=== PATIENT | female | born 1975 | race Caucasian/White ===

== ENCOUNTER 2019-07-14 09:11 | Emergency (ER) | payer OTHER ==
[2019-07-14 09:24] VITALS: BP 105/60; PULSE 98; TEMP 101.4; BMI 22.3
[2019-07-14] MEDS ORDERED: IBUPROFEN 400 MG TABLET (FP) PO ONE ×2 (09:31→09:33)
--- NOTE | 2019-07-14 09:33 | PDOC ---
History of Present Illness - General Chief Complaint: Cold Symptoms Stated Complaint: FEVERS / HEADACHE Time Seen by Provider: 07/14/19 09:22 History Source: Patient - History of Present Illness Timing/Duration: reports: yesterday Past History - Past Medical History Allergies/Adverse Reactions: Allergies Allergy/AdvReac Type Severity Reaction Status Date / Time No Known Allergies Allergy Verified 04/03/16 14:14 Home Medications: Ambulatory Orders NK [No Known Home Medication] 07/14/19 COPD: No - Surgical History GI Surgery: No - Immunization History Immunization Up to Date: No - Psycho Social/Smoking Cessation Hx Smoking Status: No Smoking History: Never smoked Have you smoked in the past 12 months: No Number of Cigarettes Smoked Daily: 0 Information on smoking cessation initiated: No Hx Alcohol Use: No Drug/Substance Use Hx: No Substance Use Type: None Review of Systems - Review of Systems Constitutional: Yes: Fever, Malaise HEENTM: No: Throat Pain Respiratory: No: Cough *Physical Exam - Vital Signs Last Vital Signs Temp Pulse Resp BP Pulse Ox 101.4 F H 98 H 18 105/60 97 07/14/19 09:11 07/14/19 09:11 07/14/19 09:11 07/14/19 09:11 07/14/19 09:11 - Physical Exam General Appearance: Yes: Appropriately Dressed. No: Apparent Distress HEENT: positive: Normal ENT Inspection, Normal Voice, TMs Normal, Pharynx Normal. negative: Scleral Icterus (R), Scleral Icterus (L) Neck: positive: Supple. negative: Lymphadenopathy (R), Lymphadenopathy (L) Respiratory/Chest: positive: Lungs Clear, Normal Breath Sounds. negative: Respiratory Distress Cardiovascular: positive: Regular Rate, S1, S2 Gastrointestinal/Abdominal: positive: Soft Integumentary: positive: Dry, Warm Neurologic: positive: Fully Oriented, Alert, Normal Mood/Affect Medical Decision Making - Medical Decision Making 07/14/19 09:32 43-year-old female no medical problems here with body aches with fever chills since last night. No cough shortness of breath nausea vomiting or diarrhea. No recent travel see exam Viral syndrome, r/o flu -dose of motrin given for fever in ED 07/14/19 10:48 Flu negative. DC with supportive treatment Discharge - Discharge Information Problems reviewed: Yes Clinical Impression/Diagnosis: Viral syndrome Condition: Good Disposition: HOME - Follow up/Referral - Patient Discharge Instructions Patient Printed Discharge Instructions: DI for Viral Syndrome Additional Instructions: Rest drink plenty of fluids and take Motrin or Tylenol for pain and/or fever - Post Discharge Activity
== END 2019-07-14 10:52 | disposition home or self-care (01) ==
LOC: JERFT 09:11
DX: B34.9 Viral infection, unspecified (principal)
CPT/HCPCS: 87804; 99281-25

== ENCOUNTER 2020-05-15 11:42 | Emergency (ER) | payer OTHER ==
[2020-05-15 11:49] VITALS: BP 134/79; PULSE 78; BMI 25.0
[2020-05-15 11:50] VITALS: TEMP 96.8
[2020-05-15] MEDS ORDERED: ACETAMINOPHEN 325 MG TABLET (FP) ONE ×2 (12:03→12:06)
[2020-05-15] MEDS ORDERED: ACETAMINOPHEN 325 MG TABLET (FP) PO ONE (12:03)
[2020-05-15 12:29] LABS: EPI CELLS 7 /uL (0-25.1); HCG,QUALITATIVE URINE Negative; HYALINE CASTS 3 /uL (0-3.1); PH,URINE 6.5 (5.0-8.0); URINE APPEARANCE TURBID; URINE BACTERIA >9,000 /uL (0-1359); URINE BILIRUBIN NEGATIVE (NEGATIVE); URINE COLOR YELLOW; URINE GLUCOSE (UA) NEGATIVE (NEGATIVE); URINE KETONE 1+ (NEGATIVE); URINE LEUK ESTERASE 3+ (NEGATIVE); URINE NITRITE POSITIVE (NEGATIVE); URINE PROTEIN 3+ (NEGATIVE); URINE RBC 814 /uL (0-23.9); URINE WBC 4523 /uL (0-25.8)
== END 2020-05-15 12:54 | disposition home or self-care (01) ==
LOC: JER 11:42 → JERFT 11:42
DX: N30.01 Acute cystitis with hematuria (principal)
CPT/HCPCS: 81003; 84703; 87086; 87186; 99284-25

== ENCOUNTER 2020-06-09 18:27 | Emergency (ER) | payer OTHER ==
[2020-06-09 18:34] VITALS: BP 127/70; PULSE 88; TEMP 98; BMI 25.4
== END 2020-06-09 19:42 | disposition home or self-care (01) ==
LOC: JERFT 18:27
DX: N30.00 Acute cystitis without hematuria (principal)
CPT/HCPCS: 99283-25

== ENCOUNTER 2021-08-20 16:00 | Emergency (ER) | payer OTHER ==
[2021-08-20 16:10] VITALS: BMI 28.3
[2021-08-20] MEDS ORDERED: SODIUM CHLORIDE 1,000 ML IV STA (17:50)
[2021-08-20] MEDS ORDERED: ACETAMINOPHEN 1000 MG/100 ML BAG IVPB ONE (17:50)
[2021-08-20] MEDS ORDERED: ONDANSETRON 4 MG/2 ML VIAL IVPUSH ONE (17:50)
[2021-08-20] MEDS ORDERED: ACETAMINOPHEN INJECTION 100 ML IVPB ONE (18:07)
[2021-08-20] MEDS ORDERED: ONDANSETRON 4 MG/2 ML VIAL ONE (18:08)
[2021-08-20 19:04] LABS: EPI CELLS 31 /uL (0-25.1); HYALINE CASTS 1 /uL (0-3.1); URINE APPEARANCE CLEAR; URINE BACTERIA 486 /uL (0-1359); URINE BILIRUBIN NEGATIVE (NEGATIVE); URINE COLOR YELLOW; URINE GLUCOSE (UA) NEGATIVE (NEGATIVE); URINE KETONE 2+ (NEGATIVE); URINE LEUK ESTERASE NEGATIVE (NEGATIVE); URINE NITRITE NEGATIVE (NEGATIVE); URINE PROTEIN TRACE (NEGATIVE); URINE RBC 291 /uL (0-23.9); URINE WBC 11 /uL (0-25.8)
[2021-08-20 19:05] LABS: HCG,QUALITATIVE URINE Negative
[2021-08-20 19:38] LABS: BASO % 0.2 % (0-2.0); EOS % 0.6 % (0-4.5); HEMATOCRIT 43.6 % (32.4-45.2); HEMOGLOBIN 15.1 GM/dL (10.7-15.3); LYMPH % 7.3 % (8-40); MCH 31.6 pg (25.7-33.7); MCHC 34.6 g/dl (32.0-36.0); MEAN CELL VOLUME 91.5 fl (80-96); MEAN PLT VOLUME 7.5 fl (7.5-11.1); MONO % 4.1 % (3.8-10.2); NEUT % 87.8 % (42.8-82.8); PLATELET COUNT 277 10^3/uL (134-434); RBC 4.77 M/mm3 (3.60-5.2); WHITE BLOOD COUNT 9.5 K/mm3 (4.0-10.0)
[2021-08-20 19:59] LABS: BLOOD UREA NITROGEN 16.5 mg/dL (7-18); CALCIUM 8.4 mg/dL (8.5-10.1)
[2021-08-20 20:02] LABS: CREATININE 0.6 mg/dL (0.55-1.3)
[2021-08-20 20:04] LABS: BILIRUBIN,TOTAL 0.5 mg/dL (0.2-1); TOT PROT 7.6 g/dl (6.4-8.2)
[2021-08-20 21:23] VITALS: BP 112/62; PULSE 84; TEMP 98.4
[2021-08-21 13:08] LABS: SARS-CoV-2 NAA Not Detected (Not Detected)
== END 2021-08-20 21:23 | disposition home or self-care (01) ==
LOC: JER 16:00
PROC: 3E0333Z Introduction of Anti-inflammatory into Peripheral Vein, Percutaneous Approach (ICD-10-PCS; principal; 2021-08-20)
PROC: 3E033GC Introduction of Other Therapeutic Substance into Peripheral Vein, Percutaneous Approach (ICD-10-PCS; 2021-08-20)
PROC: 3E0337Z Introduction of Electrolytic and Water Balance Substance into Peripheral Vein, Percutaneous Approach (ICD-10-PCS; 2021-08-20)
DX: K52.9 Noninfective gastroenteritis and colitis, unspecified (principal)
CPT/HCPCS: 36415; 80053; 81003; 83690; 84484; 84703; 85025; 87086; 93005; 93010; 99284-25; C9803; U0003; U0005

== ENCOUNTER 2022-05-22 18:28 | Emergency (ER) | payer OTHER ==
[2022-05-22 18:47] VITALS: BP 123/66; PULSE 85; RESP 18; TEMP 98.5; BMI 25.7
[2022-05-22] MEDS ORDERED: KETOROLAC TROMETHAMINE 15 MG/ML VIAL IVPUSH ONE (19:58)
[2022-05-22 20:00] LABS: EPI CELLS >36 /uL (0-25.1); HCG,QUALITATIVE URINE Negative; HYALINE CASTS 1 /uL (0-3.1); URINE APPEARANCE CLOUDY; URINE BACTERIA 994 /uL (0-1359); URINE BILIRUBIN NEGATIVE (NEGATIVE); URINE COLOR YELLOW; URINE GLUCOSE (UA) NEGATIVE (NEGATIVE); URINE KETONE NEGATIVE (NEGATIVE); URINE LEUK ESTERASE 2+ (NEGATIVE); URINE NITRITE NEGATIVE (NEGATIVE); URINE PROTEIN NEGATIVE (NEGATIVE); URINE RBC 119 /uL (0-23.9); URINE UROBILINOGEN 0.2 mg/dL (0.2-1.0); URINE WBC 192 /uL (0-25.8)
[2022-05-22] MEDS ORDERED: KETOROLAC TROMETHAMINE 15 MG/ML VIAL ONE (20:32)
[2022-05-22] MEDS ORDERED: KETOROLAC TROMETHAMINE 15 MG/ML VIAL IM ONE (20:32)
== END 2022-05-22 20:57 | disposition home or self-care (01) ==
LOC: JER 18:28
PROC: 3E023GC Introduction of Other Therapeutic Substance into Muscle, Percutaneous Approach (ICD-10-PCS; principal; 2022-05-22)
DX: N39.0 Urinary tract infection, site not specified (principal)
CPT/HCPCS: 81003; 84703; 87086; 99284-25

== ENCOUNTER 2023-12-08 15:38 | Emergency (ER) | payer OTHER ==
[2023-12-08 15:49] VITALS: BP 123/67; PULSE 67; RESP 18; TEMP 98; BMI 26.1
[2023-12-08 16:59] LABS: EPI CELLS 8 /uL (0-25.1); HYALINE CASTS 1 /uL (0-3.1); URINE APPEARANCE TURBID; URINE BACTERIA >9,000 /uL (0-1359); URINE BILIRUBIN NEGATIVE (NEGATIVE); URINE COLOR ORANGE; URINE GLUCOSE (UA) NEGATIVE (NEGATIVE); URINE KETONE NEGATIVE (NEGATIVE); URINE LEUK ESTERASE 3+ (NEGATIVE); URINE NITRITE NEGATIVE (NEGATIVE); URINE PROTEIN 2+ (NEGATIVE); URINE RBC 12300 /uL (0-23.9); URINE UROBILINOGEN 0.2 mg/dL (0.2-1.0); URINE WBC 4247 /uL (0-25.8)
[2023-12-08] MEDS ORDERED: PHENAZOPYRIDINE HCL 100 MG TABLET (FP) ONE (18:02)
[2023-12-08] MEDS: PHENAZOPYRIDINE HCL 100 MG TABLET (FP) PO ONE (18:11)
[2023-12-08] MEDS: CEFPODOXIME PROXETIL 100 MG TABLET PO ONE (19:07)
== END 2023-12-08 18:40 | disposition home or self-care (01) ==
LOC: JER 15:38
DX: N30.01 Acute cystitis with hematuria (principal); R35.0 Frequency of micturition; R30.0 Dysuria; R10.30 Lower abdominal pain, unspecified
CPT/HCPCS: 81003; 84703; 87086; 87186; 99283-25

== ENCOUNTER 2024-03-13 05:10 | Emergency (ER) | payer OTHER ==
[2024-03-13 05:18] VITALS: BP 140/70; PULSE 65; RESP 20; TEMP 98.8; BMI 25.0
[2024-03-13 06:34] LABS: EPI CELLS 12 /uL (0-25.1); HYALINE CASTS 0 /uL (0-3.1); URINE APPEARANCE CLEAR; URINE BACTERIA 30 /uL (0-1359); URINE BILIRUBIN NEGATIVE (NEGATIVE); URINE COLOR YELLOW; URINE GLUCOSE (UA) NEGATIVE (NEGATIVE); URINE KETONE NEGATIVE (NEGATIVE); URINE LEUK ESTERASE 1+ (NEGATIVE); URINE NITRITE NEGATIVE (NEGATIVE); URINE PROTEIN NEGATIVE (NEGATIVE); URINE RBC 21 /uL (0-23.9); URINE UROBILINOGEN 0.2 mg/dL (0.2-1.0); URINE WBC 76 /uL (0-25.8)
== END 2024-03-13 07:09 | disposition home or self-care (01) ==
LOC: JER 05:10
DX: N39.0 Urinary tract infection, site not specified (principal); R10.30 Lower abdominal pain, unspecified; R30.0 Dysuria
CPT/HCPCS: 81003; 87086; 99283-25

== ENCOUNTER 2024-09-08 19:01 | Emergency (ER) | payer OTHER ==
[2024-09-08 19:09] VITALS: TEMP 98.4; BMI 24.2
[2024-09-08] MEDS: ACETAMINOPHEN 1000 MG/100 ML BAG IVPB ONE (21:00)
[2024-09-08] MEDS: SODIUM CHLORIDE 0.9% 500 ML INFUS.BAG IV ONE (21:00)
[2024-09-08 21:09] LABS: HEMATOCRIT 46.9 % (34.1-44.9); HEMOGLOBIN 15.6 g/dL (11.2-15.7); MCHC 33.3 g/dl (32.2-35.5); MEAN CELL VOLUME 92.7 fl (79.4-94.8); MEAN PLT VOLUME 9.7 fl (9.4-12.3); PLATELET COUNT # 296 x10^3/uL (182-369); RDW 12.8 % (12.2-17.1)
[2024-09-08 21:11] LABS: EPI CELLS >36 /uL (0-25.1); HYALINE CASTS 1 /uL (0-3.1); PH,URINE 6.5 (5.0-8.0); URINE APPEARANCE CLEAR; URINE BACTERIA 34 /uL (0-1359); URINE BILIRUBIN NEGATIVE (NEGATIVE); URINE COLOR YELLOW; URINE GLUCOSE (UA) NEGATIVE (NEGATIVE); URINE KETONE NEGATIVE (NEGATIVE); URINE LEUK ESTERASE 1+ (NEGATIVE); URINE NITRITE NEGATIVE (NEGATIVE); URINE PROTEIN NEGATIVE (NEGATIVE); URINE RBC 422 /uL (0-23.9); URINE UROBILINOGEN 0.2 mg/dL (0.2-1.0); URINE WBC 55 /uL (0-25.8)
[2024-09-08] MEDS ORDERED: ACETAMINOPHEN INJECTION 100 ML ONE (21:11)
[2024-09-08 21:16] LABS: INR 0.96 (0.83-1.09); PROTHROMBIN TIME (PATIENT) 10.6 SEC (9.7-13.0)
[2024-09-08 21:19] LABS: ACTIVATED PTT 28.6 SECONDS (25.2-36.5)
[2024-09-08 21:23] LABS: POTASSIUM 4.3 mmol/L (3.5-5.1)
[2024-09-08 21:24] LABS: CALCIUM 8.6 mg/dL (8.5-10.1)
[2024-09-08 21:25] LABS: ALBUMIN 3.8 g/dl (3.4-5.0); BLOOD UREA NITROGEN 16.8 mg/dL (7-18); MAGNESIUM 2.3 mg/dL (1.8-2.4)
[2024-09-08 21:28] LABS: CREATININE 0.7 mg/dL (0.55-1.3)
[2024-09-08 21:30] LABS: TOT PROT 7.5 g/dl (6.4-8.2)
[2024-09-08 21:36] LABS: BILIRUBIN,TOTAL 0.5 mg/dL (0.2-1)
[2024-09-08 22:56] VITALS: BP 108/72; PULSE 83; RESP 18
[2024-09-09] MEDS ORDERED: CEFTRIAXONE 1 G/50 ML PREMIX 50 ML IVPB ONE (00:22)
== END 2024-09-09 00:58 | disposition home or self-care (01) ==
LOC: JER 19:01
PROC: 3E033NZ Introduction of Analgesics, Hypnotics, Sedatives into Peripheral Vein, Percutaneous Approach (ICD-10-PCS; principal; 2024-09-08)
PROC: 3E03329 Introduction of Other Anti-infective into Peripheral Vein, Percutaneous Approach (ICD-10-PCS; 2024-09-09)
DX: N39.0 Urinary tract infection, site not specified (principal); R07.89 Other chest pain; R10.11 Right upper quadrant pain; R11.0 Nausea; R00.2 Palpitations
CPT/HCPCS: 0241U-QW; 36415; 71046-TC-FY; 76705-TC; 80053; 81003; 83735; 84439; 84443; 84484; 84703; 85025; 85379; 85610; 85730; 87086; 99285-25; J0131